=== PATIENT | male | born 1975 | race Caucasian/White ===

== ENCOUNTER 2016-11-19 08:36 | Outpatient (CLI) | payer BC ==
[~2016-11-19 08:36] MED LIST: Airborne PO; HYCET1 ML PO; HYDROCODONE BITA PO; ULORIC40 MG
--- NOTE | 2016-11-19 10:22 | DIAGNOSTIC IMAGING REPORT ---
PROCEDURE: MR UPPER EXTREMITY W/O CONT-RT INDICATION: RT LATERAL EPICONDYLITIS,ELBOW TECHNIQUE: PD and FAT-SAT PD, axial, and coronal-oblique images. PD and STIR sagittal-oblique images. COMPARISON: None. FINDINGS: Medial and lateral collateral ligaments are intact without evidence of epicondylitis. 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 There is no occult fracture. Normal tendons and muscular structures. IMPRESSION: 1. No evidence of epicondylitis 2. 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
== END 2016-11-19 23:00 ==
LOC: MRI SRH 08:36
DX: M19.021 Primary osteoarthritis, right elbow (principal)